=== PATIENT | male | born 1950 | race Caucasian/White ===

== ENCOUNTER → 2023-05-31 | Outpatient (CLI) | payer OTHER | END | disposition home or self-care (01) | LOC: RESCLI 08:34 | PROVIDERS: ATTEND Family Medicine | DX: E11.9 Type 2 diabetes mellitus without complications (principal); E78.5 Hyperlipidemia, unspecified; G62.9 Polyneuropathy, unspecified; I25.9 Chronic ischemic heart disease, unspecified; I10 Essential (primary) hypertension; D12.6 Benign neoplasm of colon, unspecified; K57.30 Diverticulosis of large intestine without perforation or abscess without bleeding; N40.0 Benign prostatic hyperplasia without lower urinary tract symptoms; M72.0 Palmar fascial fibromatosis [Dupuytren]; M54.17 Radiculopathy, lumbosacral region; G95.19 Other vascular myelopathies; Z98.890 Other specified postprocedural states; Z79.899 Other long term (current) drug therapy ==